=== PATIENT | male | born 1955 | race Caucasian/White ===

== ENCOUNTER 2023-02-23 16:10 | Emergency (ER) | payer BC, MEDICAID, MEDICARE ==
[2023-02-23] MEDS ORDERED: Sodium Chloride 0.9% 1,000 ML IV ONE (16:15)
[2023-02-23] MEDS ORDERED: Sodium Chloride 0.9% 10 ML Syringe FLUSH PRN (16:20)
[2023-02-23] MEDS ORDERED: methylPREDNISolone Sodium Succinate 125 MG/2 ML SDV IVPUSH ONE (16:20)
[2023-02-23] MEDS ORDERED: diphenhydrAMINE 50 MG/ML SDV IVPUSH ONE (16:21)
[2023-02-23] MEDS ORDERED: EPINEPHrine 1 MG/ML SDV IM ONE (16:21)
[2023-02-23 16:33] LABS: BASOPHILS PERCENT AUTO 0.1 % (0.1-1.3); EOSINOPHILS ABSOLUTE AUTO 0.09 K/uL (0.00-0.40); EOSINOPHILS PERCENT AUTO 1.3 % (0.0-5.4); HEMATOCRIT 43.5 % (38.4-49.7); HEMOGLOBIN 14.9 g/dL (12.9-16.9); IMMATURE GRAN PERCENT AUTO 0.1 % (0.0-0.7); LYMPHOCYTES ABSOLUTE AUTO 3.36 K/uL (0.8-3.3); LYMPHOCYTES PERCENT AUTO 49.2 % (11.4-47.7); MEAN CORPUSCULAR HEMOGLOBIN 28.5 pg (31.6-35.5); MEAN CORPUSCULAR HGB CONC 34.3 g/dL (31.6-35.5); MEAN CORPUSCULAR VOLUME 83.3 fL (81.4-99.0); MONOCYTES ABSOLUTE AUTO 0.36 K/uL (0.20-0.90); MONOCYTES PERCENT AUTO 5.3 % (3.3-12.6); PLATELET COUNT,PLT 274 K/uL (130-375); RED BLOOD CELL COUNT 5.22 M/uL (4.14-5.76); WHITE BLOOD CELL COUNT,WBC 6.8 K/uL (3.2-11.0)
[2023-02-23 16:37] LABS: BASOPHILS ABSOLUTE AUTO 0.01 K/uL (0.00-0.10)
[2023-02-23 16:38] LABS: IMMATURE GRAN ABSOLUTE AUTO 0.01 K/uL (0.00-0.23)
[2023-02-23 16:48] LABS: BLOOD UREA NITROGEN,BUN 25 mg/dL (7-18); CALCIUM 8.5 mg/dL (8.5-10.1); CARBON DIOXIDE,CO2 29 mmol/L (21-32); CHLORIDE,CL 104 mmol/L (100-108); CREATININE 1.7 mg/dL (0.8-1.3); ESTIMATED GFR 43 mL/min (>60); GLUCOSE RANDOM 161 mg/dL (74-106); POTASSIUM,K 3.2 mmol/L (3.6-5.2); SODIUM,NA 143 mmol/L (140-148)
[2023-02-23 16:50] LABS: ANION GAP 13.2 mmol/L (5.0-14.0)
[2023-02-23] MEDS ORDERED: Sodium Chloride 0.9% 2,000 ML IV ONE (17:10)
[2023-02-23] MEDS ORDERED: Potassium Chloride 20 MEQ Tab.ER PO ONE (17:11)
[2023-02-23 18:25] LABS: ANION GAP 8.6 mmol/L (5.0-14.0); CALCIUM 7.7 mg/dL (8.5-10.1); CREATININE 1.4 mg/dL (0.8-1.3); EST CRCL DRUG DOSING (CG) 52.14 mL/min; POTASSIUM,K 4.1 mmol/L (3.6-5.2)
== END 2023-02-23 20:32 | disposition home or self-care (01) ==
LOC: JP.ED 16:10
DX: T78.40XA Allergy, unspecified, initial encounter (principal); E86.0 Dehydration
CPT/HCPCS: 36415; 80048; 85025; 96361; 96372; 96374; 96375; 99284; A9270; J0171; J1200; J2930; J3490; J7030